=== PATIENT | female | born 1990 | race Caucasian/White ===

== ENCOUNTER 2017-12-30 11:49 | Inpatient (IN) | payer OTHER ==
--- NOTE | 2017-12-30 15:16 | OBHP ---
Datetime: 12/30/2017 12:22 IP Adm Impression: Term, intrauterine IP Admit Plan: Admit to unit Admit Comment, IP Provider: @ 38 wks c/o lof while arriving at [facility] for her tour, denies vb, +FM no ctx. pt initally evluated for decreased movments over past week, however feeling mo vment now and ROM which was rule out, pt was noted to be 3-4cm, and ambulated and retruend for reevla uion and was 5cm. Pt was counsled on continued ambulation vs admission. OB: x 1 BY: dnies PMH: denies PSH: dneies FHX: non contrubitory MEDS: PNV NKDA SHX: negative eoth/tobacco/drugs A/P @ 38 wks GA in labor admit to L+D npo, ivf admission labs contotoco and efm analgyesi prn FHR - Baseline A Provider: 130 Membranes, Provider: Intact Contraction Comments Provider: irregular Comments, ACOG Physical Exam: amneisure negative negative pooling mucous discharge Gestation - Est Wks by US: 38.0 IP Hx Assessment: The History has been Reviewed and is Current IP Chief Complaint: Suspected ruptured membranes NICHD Variability Prov Fetus A: Moderate 6-25bpm FHR Category Provider Fetus A: Category I Dilatation, Provider: 4-5 Effacement, Provider: 70 Station, Provider: -2
--- NOTE | 2017-12-30 15:26 | OBADHP ---
Datetime: 12/30/2017 12:22 Admit Comment, IP Provider: @ 38 wks c/o lof while arriving at [facility] for her tour, denies vb, +FM no ctx. pt initally evluated for decreased movments over past week, however feeling mo vment now and ROM which was rule out, pt was noted to be 3-4cm, and ambulated and retruend for reevla uion and was 5cm. Pt was counsled on continued ambulation vs admission. OB: x 1 BY: dnies PMH: denies PSH: dneies FHX: non contrubitory MEDS: PNV NKDA SHX: negative eoth/tobacco/drugs A/P @ 38 wks GA in labor admit to L+D npo, ivf admission labs contotoco and efm analgyesi prn FHR - Baseline A Provider: 130 Membranes, Provider: Intact Contraction Comments Provider: irregular Comments, ACOG Physical Exam: amneisure negative negative pooling mucous discharge Gestation - Est Wks by US: 38.0 IP Hx Assessment: The History has been Reviewed and is Current IP Chief Complaint: Suspected ruptured membranes NICHD Variability Prov Fetus A: Moderate 6-25bpm FHR Category Provider Fetus A: Category I Dilatation, Provider: 4-5 Effacement, Provider: 70 Station, Provider: -2 IP Adm Impression: Term, intrauterine IP Admit Plan: Admit to unit
[2017-12-30 16:00] LABS: BASO % 0.2 % (0.0-2.0); EOS # 0.1 K/uL (0.0-0.7); EOS % 1.1 % (0.0-4.0); HEMOGLOBIN 12.9 g/dL (11.0-16.0); LYMPH # 2.2 K/uL (1.0-4.3); LYMPH % 20.1 % (20.0-40.0); MEAN CELL VOLUME 87.5 fL (81.0-99.0); MEAN CORPUSCULAR HEMOGLOBIN 29.5 pg (27.0-31.0); MEAN CORPUSCULAR HGB CONC 33.7 g/dL (33.0-37.0); MEAN PLATELET VOLUME 8.5 fL (7.2-11.7); MONO # 0.6 K/uL (0.0-0.8); MONO % 5.4 % (0.0-10.0); NEUT # 8.2 K/uL (1.8-7.0); NEUT % 73.2 % (50.0-75.0); NRBC % 0.1 % (0.0-2.0); RBC 4.39 Mil/uL (3.80-5.20); RED CELL DISTRIBUTION WIDTH 13.7 % (11.5-14.5); WHITE BLOOD COUNT 11.2 K/uL (4.8-10.8)
[2017-12-30] MEDS ORDERED: Oxytocin 30 UNIT 30 UNITS/500 ML BAG IV SCH (16:00)
[2017-12-30 16:18] LABS: ALB/GLOB RATIO 1.1 (1.0-2.1); ALBUMIN 3.8 g/dL (3.5-5.0); ALT/SGPT 20 U/L (9-52); AST/SGOT 25 U/L (14-36); BLOOD UREA NITROGEN 8 mg/dL (7-17); CALCIUM 9.5 mg/dl (8.6-10.4); GFR AFRICAN-AMERICAN > 60; GFR NON-AFRICAN AMERICAN > 60
[2017-12-30] MEDS: Lactated Ringer's 1,000 ML IV SCH (17:48)
[2017-12-30] MEDS ORDERED: Oxytocin 30 UNIT 30 UNITS/500 ML BAG IV ONE (18:00)
[2017-12-30 21:19] LABS: RAPID PLASMA REAGIN NONREACTIVE (NONREACTIVE)
[2017-12-30] MEDS ORDERED: Bupivacaine HCl/FentaNYL Cit 100 ML EPI ONE (23:10)
--- NOTE | 2017-12-30 23:52 | OBPN ---
Datetime: 12/30/2017 23:49 IP Progress Impression: Normal progression of labor IP Progress Plan: Continue present management Membranes, Provider: Ruptured Amniotic Fluid Color, Provider: Clear Contraction Comments Provider: q 2-4 min FHR - Baseline A Provider: 145 Gestation - Est Wks by US: 37.4 Presentation-Admit: Vertex IP Progress Note Comment: pt seen and examiend , srom , increaed pain requsting medicaion s/p epidural vss efm; cat i toto q 2-4 min pitocin 10 mu/min a/p @ 37.4 wks GA in labor cont current manamgent Vital Signs Provider: Reviewed; Within Normal Limits FHR Category Provider Fetus A: Category I NICHD Variability Prov Fetus A: Moderate 6-25bpm Dilatation, Provider: 6 Effacement, Provider: 70 Station, Provider: -2 NICHD Decel Fetus A IP Provider: None
[2017-12-31] MEDS: Lactated Ringer's 1,000 ML IV SCH
[2017-12-31] MEDS ORDERED: Bupivacaine HCl/FentaNYL Cit 0 ML EPI ONE (09:06)
[2017-12-31] MEDS ORDERED: Lidocaine Hydrochloride 10 ML INJ ONE (09:09)
[2017-12-31] MEDS ORDERED: Oxytocin 20 units in LR 2,000 ML IV ONE (09:34)
--- NOTE | 2017-12-31 10:09 | OBPN ---
Datetime: 12/31/2017 10:04 IP Progress Impression: Normal progression of labor IP Progress Plan: Continue present management Membranes, Provider: Ruptured Contraction Comments Provider: q 2-3 min FHR - Baseline A Provider: 140 Gestation - Est Wks by US: 37.5 IP Progress Note Comment: pt seen and examiend reports pressure adn pain s/p pediural VSS VE: 9cm EFM: Kelly I TOOC: q 2-3 min Pitocin 10 mu/min a/p @ 37.5 wks GA in labor -cont current magnent -pain mangmnet Vital Signs Provider: Reviewed; Within Normal Limits FHR Category Provider Fetus A: Category I NICHD Variability Prov Fetus A: Moderate 6-25bpm Dilatation, Provider: 9 Effacement, Provider: 100 Station, Provider: 0
--- NOTE | 2017-12-31 10:58 | OBDS ---
DELIVERY PERSONNEL Nurse Transport Aircrewman Certified: N/A Delivery Doctor: Leola Zazueta MD Scrub Nurse: N/A Infectious Waste Technician: Vira Santana RN Anesthesiologist: Leola Motley MD Batching Operator: N/A Resident: N/A MATERNAL INFORMATION Delivery Anesthesia: Epidural Estimated Blood Loss (ml): 300 Placenta Cultured: No Maternal Complications: None RN Comments: Father of baby present in room for delivery of infant. Provider Comments: pt was fully dilated and pushing. atrmatic, spoonatenous delivery of head. no nuc eamon cord noted. atrumatic, spontanoeus delivery of anterior followed by posterior shoulder followed b y delivery of body. both oral and nasal passages of the baby were bulb suctioned. umbilical cord clam ped and cut. baby handed to mother on abodmen with rn assistance. cord blood adn cord gasese collecte d and sent x 2. Spontaneous delivery of intact placenta with membranes. fundus firm. second degree p erienal laceration noted and repaired with 2-0 and 3-0 chromic. Good hemostasis, no complications. Live male apgars 9,9 weight of 8lbs ebl 300ml LABOR SUMMARY EDC: 01/16/2018 00:00 No. Babies in Womb: 1 Attempted: No Labor Anesthesia: Epidural LABOR INFORMATION Reason for Induction: Not Applicable Reason for Induction Other: N/A Onset of Labor: 12/30/2017 13:00 Oxytocin: Augmentation Group B Beta Strep: Negative Antibiotics # of Doses: N/A Antibiotics Time of Last Dose: N/A Steroids Given: None Reason Steroids Not Administered: Not Applicable Other Reason Not Administered: N/A MEMBRANES Membranes Rupture Method: Spontaneous Rupture of Membranes: 12/30/2017 19:10 Amniotic Fluid Color: Clear Amniotic Fluid Amount: Moderate Amniotic Fluid Odor: Normal VAGINAL DELIVERY Laceration Extension: Second Degree Laceration Type: Perineal Initial Vag Sponge Count: 10 Final Vag Sponge Count: 10 Initial Vag Sharps Count: 0 Final Vag Sharps Count: 3 Sponge Count Correct: Yes; Vaginal Sweep Performed Sharps Count Correct: Yes Count Comment: Sponges and sharps counted by CLARY Appiah Dr. INFANT INFORMATION BABY A Gestational Age at Delivery: 37.5 Gestational Status: Term IDENTIFICATION/MEDS BABY A ID Band Number: [id number] Sensor Number: [id number] WEIGHT/LENGTH BABY A Birthweight (gms): 3545 Infant Weight (lb): 7 Weight (oz): 13 Infant Length Inches: 20.00 Length cms: 50.8 CORD INFORMATION BABY A Nuchal Cord : N/A Cord Blood Taken: Yes
[2017-12-31] MEDS ORDERED: Oxycodone/Acetaminophen 5/325 mg Tab PO PRN ×2 (11:00)
[2017-12-31] MEDS ORDERED: Benzocaine/Menthol 20%-0.5% Topical Spray (60 ml) TOP PRN (11:00)
--- NOTE | 2018-01-01 04:31 | OBPPN ---
Datetime: 01/01/2018 04:29 PP Pain Prov: Within normal limits PP Nausea Prov: Denies PP Flatus Prov: Yes PP BM Prov: No PP Breasts Prov: Normal PP Heart Prov: Normal PP Lungs Prov: Normal PP Abdomen/Uterus Prov: Normal PP Lochia Prov: Normal PP Vulva/Perineum Prov: Normal PP CVA Tenderness Prov: Normal PP Extremities Prov: Normal PP C/S Incision Prov: Not Applicable PP Progress Prov: Normal PP Impression Prov: Normal progression PP Plan Prov: Continue present management PP Progress Note Prov: pt seen and examiend and reprots pain contorlled with medicaion. pt amabuitng , voiding, passing flatus, tolerating regular diet, bresat feeding VSS PE see above a/p s/p PPD #1 am cbc pain manamgnet encourage breast feedign and ambuation Vital Signs Provider PP: Reviewed; Within Normal Limits
[2018-01-01 07:40] LABS: BASO % 0.1 % (0.0-2.0); EOS # 0.1 K/uL (0.0-0.7); EOS % 0.9 % (0.0-4.0); HEMOGLOBIN 11.4 g/dL (11.0-16.0); LYMPH # 2.7 K/uL (1.0-4.3); LYMPH % 16.2 % (20.0-40.0); MEAN CELL VOLUME 87.4 fL (81.0-99.0); MEAN CORPUSCULAR HEMOGLOBIN 30.6 pg (27.0-31.0); MEAN CORPUSCULAR HGB CONC 34.9 g/dL (33.0-37.0); MEAN PLATELET VOLUME 8.3 fL (7.2-11.7); MONO # 0.8 K/uL (0.0-0.8); MONO % 5.1 % (0.0-10.0); NEUT # 12.7 K/uL (1.8-7.0); NEUT % 77.7 % (50.0-75.0); RBC 3.74 Mil/uL (3.80-5.20); RED CELL DISTRIBUTION WIDTH 13.8 % (11.5-14.5); WHITE BLOOD COUNT 16.4 K/uL (4.8-10.8)
[2018-01-01] MEDS: Multiple Vitamins Tab PO SCH (09:33)
--- NOTE | 2018-01-01 18:04 | CP.PCM.PN ---
Subjective - Date & Time of Evaluation Date of Evaluation: 01/01/18 Time of Evaluation: 17:55 - Subjective Subjective: 27 yof s/p under epidural analgesia evaluated because patient complained to the nurse about left heel pain. Patient seen and examined. No paresthesia, no motor deficits, sensorium intact. Patient reports pain in the heel at rest and when walking, burning sensation. Patient states that she started feeling the heel pain when she was admitted for labor and was getting her iv placed, before the epidural placement. Patient's left leg was noticed to be swollen from the knee down, no redness , no discoloration, heel pain elicited on palpation, pulses present. OBGYN distance education director hospitalist was called and notified about left leg swelling and heel pain. Doppler to r/o DVT was suggested to Ob doc. A/P: suggested to OB doc to r/o DVT -Leg elevation -Could be plantar fasciitis as well. -No apparent complications from epidural labor analgesia. Will monitor the patient. Objective - Vital Signs/Intake and Output Vital Signs (last 24 hours): Temp Pulse Resp BP Pulse Ox 97.5 F L 80 18 102/70 100 01/01/18 16:00 01/01/18 16:00 01/01/18 16:00 01/01/18 16:00 01/01/18 16:00 - Medications Medications: Current Medications Benzocaine/Menthol (Dermoplast 20%-0.5%) 0 ml TOP PRN PRN PRN Reason: Perineal Discomfort Last Admin: 12/31/17 17:01 Dose: 60 ml Docusate Sodium (Colace) 100 mg PO BID [facility] Last Admin: 01/01/18 17:21 Dose: 100 mg Oxytocin (Pitocin) 30 units in 500 mls @ 2 mls/hr IV .Q24H ALEKSANDR; 0.002 UNIT/MIN PRN Reason: Protocol Last Admin: 12/30/17 17:49 Dose: 2 mls/hr Ibuprofen (Motrin Tab) 600 mg PO Q6 PRN PRN Reason: Pain, Mild (1-3) Last Admin: 01/01/18 17:21 Dose: 600 mg Lactulose (Enulose) 10 gm PO DAILY [facility] Last Admin: 01/01/18 09:34 Dose: 10 gm Multivitamins (Hexavitamin) 1 tab PO DAILY [facility] Last Admin: 01/01/18 09:33 Dose: 1 tab Oxycodone/Acetaminophen (Percocet 5/325 Mg Tab) 1 tab PO Q4H PRN PRN Reason: Pain, moderate (4-7) Stop: 01/03/18 11:01 Last Admin: 12/31/17 16:59 Dose: 1 tab Oxycodone/Acetaminophen (Percocet 5/325 Mg Tab) 2 tab PO Q4H PRN PRN Reason: Pain, severe (8-10) Stop: 01/03/18 11:01 Sennosides (Senokot Tab) 17.2 mg PO DAILY ALEKSANDR Last Admin: 01/01/18 09:34 Dose: 17.2 mg - Labs Labs: 01/01/18 07:23 12/30/17 15:53
[2018-01-02 08:18] VITALS: BP 109/68; PULSE 74; RESP 18; O2SAT 98
[2018-01-02] MEDS: Multiple Vitamins Tab PO SCH (09:10)
--- NOTE | 2018-01-02 11:17 | VASCLAB ---
PROCEDURE: Left Lower Extremity Venous Duplex Exam. HISTORY: Swelling, pain PRIORS: None. TECHNIQUE: Left common femoral, femoral, popliteal and posterior tibial, peroneal and great saphenous veins were evaluated. Flow was assessed with color Doppler, compressibility, assessment of phasic flow and augmentation response. Report prepared by GIOVANI Salinas FINDINGS: LEFT: 1. Common Femoral Vein: 1.1. Compressibility - Fully compressible: Thrombus - None : Flow - Phasic: Augmentation -Normal: Reflux - None. 2. Femoral Vein: 2.1. Compressibility - Fully compressible: Thrombus - None: Flow - Phasic: Augmentation -Normal: Reflux - None. 3. Popliteal Vein: 3.1. Compressibility - Fully compressible: Thrombus - None: Flow - Phasic: Augmentation -Normal: Reflux - None. 4. Posterior Tibial Vein: 4.1. Compressibility - Fully compressible: Thrombus - None: Flow - Phasic: Augmentation -Normal: Reflux - None. 5. Peroneal Vein: 5.1. Compressibility - Fully compressible: Thrombus - None: Flow - Phasic: Augmentation -Normal: Reflux - None. 6. Great Saphenous Vein: 6.1. Compressibility - Fully compressible: Thrombus - None: Flow - Phasic: Augmentation - Normal: Reflux - None. OTHER FINDINGS: IMPRESSION: No evidence of deep or superficial vein thrombosis of the left lower extremity with excellent venous flow. Normal valve function noted of the left side. Normal venous flow noted in the right common femoral vein.
--- NOTE | 2018-01-02 16:18 | OBPPN ---
Datetime: 01/02/2018 16:16 PP Pain Prov: Within normal limits PP Nausea Prov: Denies PP Flatus Prov: Yes PP Breasts Prov: Normal PP Heart Prov: Normal PP Lungs Prov: Normal PP Abdomen/Uterus Prov: Normal PP Lochia Prov: Normal PP Vulva/Perineum Prov: Normal PP CVA Tenderness Prov: Normal PP Extremities Prov: Normal PP Impression Prov: Normal progression PP Plan Prov: Continue present management; Discharge
--- NOTE | 2018-01-02 16:18 | OBDCSUM ---
Datetime: 01/02/2018 09:56 Discharged to, Provider: Home Follow up at, Provider: Dr Zazueta Disch Instr Activity: Normal activity Disch Instr Diet: Regular Discharge Instructions, Provider: Routine instructions given Discharge Diagnosis, Provider: Term Delivered Discharge Time: 01/02/2018 15:30 Follow up in weeks, Provider: in 6 weeks-pls call for an appointment Disch Referrals: None Contraception discussed, Prov: Yes Disch Activity Restrictions: No sexual activity; Nothing in vagina - Herreid, tampons, douche Contraception after Delivery: Not Planning to Use
[2018-01-02 20:00] VITALS: TEMP 97
== END 2018-01-02 15:30 | disposition home or self-care (01) | DRG 373 ==
LOC: C.EROB 11:49 → C.4D 15:14 → C.4M 12-31 13:00
PROVIDERS: ADMIT Obstetrics & Gynecology; ATTEND Obstetrics & Gynecology
PROC: 10E0XZZ Delivery of Products of Conception, External Approach (ICD-10-PCS; principal; 2017-12-30)
PROC: 0KQM0ZZ Repair Perineum Muscle, Open Approach (ICD-10-PCS; 2017-12-30)
DX: O70.1 Second degree perineal laceration during delivery (principal); Z3A.37 37 weeks gestation of pregnancy; Z37.0 Single live birth